=== PATIENT | female | born 1965 | race Asian ===

== ENCOUNTER 2017-04-06 17:40 | Emergency (ER) | payer SELFPAY ==
[~2017-04-06] VITALS: Ht 157.5 cm; Wt 80.0 kg
[2017-04-06 17:48] VITALS: Ht 157.5 cm; Wt 80.0 kg
== END 2017-04-06 19:32 | disposition left against medical advice (07) ==
LOC: E/R 17:40
DX: Z53.21 Procedure and treatment not carried out due to patient leaving prior to being seen by health care provider (principal)